=== PATIENT | female | born 1935 | race Caucasian/White ===

== ENCOUNTER → 2024-06-06 | Outpatient (CLI) | payer MEDICARE, OTHER ==
[2024-06-06 14:49] LABS: BASO # 0.02 K/mm3 (0.02-0.10); EOS # 0.16 K/mm3 (0.04-0.40); EOS % 1.5 % (1.0-5.0); HEMATOCRIT 33.4 % (37.0-47.0); HEMOGLOBIN 9.9 g/dL (12.5-16.0); LYMPH# 2.26 K/mm3 (1.50-4.00); MEAN CELL VOLUME 87 fl (78-100); MEAN CORPUSCULAR HEMOGLOBIN 26 pg (27-31); MEAN CORPUSCULAR HGB CONC 30 g/dL (33-37); MEAN PLATELET VOLUME 8.7 fl (7.4-10.4); MONO # 0.72 K/mm3 (0.20-0.80); NEU # 7.69 K/mm3 (1.40-6.50); PLATELET COUNT 336 K/mm3 (130-400); RED BLOOD COUNT 3.83 M/mm3 (4.10-5.30); RED CELL DISTRIBUTION WIDTH 15.2 % (11.5-14.5)
[2024-06-06 14:57] LABS: ALBUMIN 3.3 g/dL (3.4-4.8)
[2024-06-06 14:59] LABS: CALCIUM 8.8 mg/dL (8.3-10.5)
[2024-06-06 15:00] LABS: TOTAL PROTEIN 9.1 g/dL (6.2-8.1)
[2024-06-06 15:15] LABS: TOTAL BILIRUBIN 0.2 mg/dL (0.2-1.2)
== END ==
LOC: LAB 14:19
PROVIDERS: Nurse Practitioner
DX: R50.9 Fever, unspecified (principal)

== ENCOUNTER 2024-07-03 12:23 | Inpatient (IN) | payer MEDICARE, OTHER ==
[~2024-07-03] VITALS: Ht 157.5 cm; Wt 101.1 kg
[~2024-07-03 12:23] MED LIST: APRESOLINE 25MG25 MG PO; ASPERCREME; ASPIRIN E.C. 8181 MG PO; BISOPROLOL FUMA10 M1 PO; CLOPIDOGREL PO; DOXYCYCLINE HY100 M5 PO; GABAPENTIN100 MG PO; HYDROXYZINE PO; LASIX40 M1 PO; LIPITOR 80MG80 MG PO; NYSTATIN15 G1 TOP; OMEPRAZOLE40 MG PO; POTASSIUM CHLO10 ME8 PO; PRESERVISION PO; QUALITY CHOICE325 MG PO; ROPINIROLE PO; SEROQUEL 2525 MG/TAB PO; ZAROXOLYN PO
[2024-07-03] MEDS ORDERED: oxyCODONE 5 MG TAB PO PRN (12:45)
[2024-07-03] MEDS ORDERED: Polyethylene Glycol 3350 Powder 17 GM PACKET PO PRN (12:45)
[2024-07-03] MEDS ORDERED: Naloxone 0.4 MG/ML VIAL IV PRN (12:45)
[2024-07-03] MEDS ORDERED: Acetaminophen 325 MG TAB PO PRN (12:45)
[2024-07-03] MEDS ORDERED: PROAIR DIGIHAL90 MCG IH (13:57)
[2024-07-03] MEDS ORDERED: ASPERCREME85 GM TP (13:58)
[2024-07-03] MEDS ORDERED: HYDROCORT 2.5%-30 GM TP (13:59)
[2024-07-03] MEDS ORDERED: ATARAX 10MG10 MG/TAB PO (14:00)
[2024-07-03] MEDS ORDERED: MELATONIN5 M3 PO (14:01)
[2024-07-03] MEDS ORDERED: IMODIUM 2MG CAPS2 MG PO (14:01)
[2024-07-03] MEDS ORDERED: TYLENOL 325MG325 MG (14:03)
[2024-07-03] MEDS ORDERED: TRAMADOL 50 MG TAB PO (14:05)
[2024-07-03] MEDS ORDERED: Albuterol 90 MCG/PUFF MDI IH PRN (15:30)
[2024-07-03] MEDS ORDERED: NS 1,000 ML IV SCH (15:30)
[2024-07-03 16:13] VITALS: BP 113/56
[2024-07-03] MEDS ORDERED: Ferrous Sulfate 325 MG TAB PO SCH (17:00)
[2024-07-03] MEDS ORDERED: Melatonin 3 MG TAB PO SCH (20:00)
[2024-07-03 20:03] VITALS: BP 146/62
[2024-07-03] MEDS ORDERED: hydrOXYzine HCl 25 MG TAB PO SCH (21:00)
[2024-07-03] MEDS ORDERED: QUEtiapine 25 MG TAB PO SCH (21:00)
[2024-07-03] MEDS ORDERED: Furosemide 40 MG/4 ML VIAL IV SCH (21:00)
[2024-07-03] MEDS ORDERED: Gabapentin 100 MG CAP PO SCH (21:00)
[2024-07-03] MEDS ORDERED: hydrALAZINE 25 MG TAB PO SCH (21:00)
[2024-07-03] MEDS ORDERED: LORazepam 2 MG/ML VIAL IM PRN (22:15)
[2024-07-04] VITALS (7 sets, daily range): BP systolic 106–156; BP diastolic 62–90
[2024-07-04] MEDS ORDERED: cefTRIAXone 1 G in Water For Injection,Sterile 10 ML IV SCH (07:00)
[2024-07-04] MEDS ORDERED: Ferrous Sulfate 325 MG TAB PO SCH (08:00)
[2024-07-04 08:25] LABS: BASO # 0.03 K/mm3 (0.02-0.10); EOS # 0.04 K/mm3 (0.04-0.40); EOS % 0.3 % (1.0-5.0); HEMATOCRIT 32.8 % (37.0-47.0); HEMOGLOBIN 9.9 g/dL (12.5-16.0); LYMPH# 1.81 K/mm3 (1.50-4.00); MEAN CELL VOLUME 87 fl (78-100); MEAN CORPUSCULAR HEMOGLOBIN 26 pg (27-31); MEAN CORPUSCULAR HGB CONC 30 g/dL (33-37); MEAN PLATELET VOLUME 8.3 fl (7.4-10.4); MONO # 0.93 K/mm3 (0.20-0.80); NEU # 9.31 K/mm3 (1.40-6.50); PLATELET COUNT 314 K/mm3 (130-400); RED BLOOD COUNT 3.77 M/mm3 (4.10-5.30); RED CELL DISTRIBUTION WIDTH 15.8 % (11.5-14.5); WHITE BLOOD COUNT 12.2 K/mm3 (4.8-10.8)
[2024-07-04 08:28] LABS: ALBUMIN 2.7 g/dL (3.4-4.8)
[2024-07-04 08:29] LABS: CALCIUM 8.7 mg/dL (8.3-10.5)
[2024-07-04 08:30] LABS: TOTAL PROTEIN 7.1 g/dL (6.2-8.1)
[2024-07-04 08:32] LABS: TOTAL BILIRUBIN 0.3 mg/dL (0.2-1.2)
[2024-07-04] MEDS ORDERED: Sulfamethoxazole/Trimethoprim 800-160 MG TAB PO SCH (09:00)
[2024-07-04] MEDS ORDERED: Atorvastatin 80 MG TAB PO SCH (09:00)
[2024-07-04] MEDS ORDERED: metOLazone 2.5 MG TABLET PO SCH (09:00)
[2024-07-04] MEDS ORDERED: Clopidogrel 75 MG TAB PO SCH (09:00)
[2024-07-04] MEDS ORDERED: Bisoprolol 5 MG TAB PO SCH (09:00)
[2024-07-04] MEDS ORDERED: Furosemide 40 MG TAB PO SCH (09:15)
[2024-07-04] MEDS ORDERED: Miconazole 2% Topical Powder BOTTLE TP PRN (10:30)
[2024-07-05 04:09] VITALS: BP 114/69
[2024-07-05 05:42] LABS: BASO # 0.02 K/mm3 (0.02-0.10); HEMATOCRIT 28.9 % (37.0-47.0); HEMOGLOBIN 8.8 g/dL (12.5-16.0); LYMPH# 1.76 K/mm3 (1.50-4.00); MEAN CELL VOLUME 87 fl (78-100); MEAN CORPUSCULAR HEMOGLOBIN 26 pg (27-31); MEAN CORPUSCULAR HGB CONC 30 g/dL (33-37); MEAN PLATELET VOLUME 8.5 fl (7.4-10.4); MONO # 0.73 K/mm3 (0.20-0.80); NEU # 7.85 K/mm3 (1.40-6.50); PLATELET COUNT 315 K/mm3 (130-400); RED BLOOD COUNT 3.33 M/mm3 (4.10-5.30); RED CELL DISTRIBUTION WIDTH 15.8 % (11.5-14.5); WHITE BLOOD COUNT 10.5 K/mm3 (4.8-10.8)
[2024-07-05 05:51] LABS: CALCIUM 8.2 mg/dL (8.3-10.5)
[2024-07-05 07:37] VITALS: BP 135/71
[2024-07-05] MEDS ORDERED: Furosemide 40 MG TAB PO SCH (09:00)
[2024-07-05 13:15] VITALS: BP 108/64
[2024-07-05] MEDS ORDERED: BACTRIM DS TAB1 EACH PO (13:17)
[2024-07-05] MEDS ORDERED: CEFDINIR300 MG PO (13:19)
[2024-07-05 13:42] VITALS: BP 108/64
[2024-07-05] MEDS ORDERED: hydrOXYzine HCl 10 MG TAB PO SCH (21:00)
== END 2024-07-05 14:45 | disposition home or self-care (01) | DRG 872 ==
LOC: MED/SURG 12:23
PROVIDERS: Family Medicine; ADMIT Family Medicine
DX: A41.9 Sepsis, unspecified organism (principal); L03.116 Cellulitis of left lower limb; L03.115 Cellulitis of right lower limb; N39.0 Urinary tract infection, site not specified; S31.103A Unspecified open wound of abdominal wall, right lower quadrant without penetration into peritoneal cavity, initial encounter; I48.0 Paroxysmal atrial fibrillation; I25.2 Old myocardial infarction; J44.9 Chronic obstructive pulmonary disease, unspecified; Z66 Do not resuscitate; I10 Essential (primary) hypertension; I25.10 Atherosclerotic heart disease of native coronary artery without angina pectoris; K21.9 Gastro-esophageal reflux disease without esophagitis; F41.9 Anxiety disorder, unspecified; F32.A Depression, unspecified; E78.5 Hyperlipidemia, unspecified; Z79.01 Long term (current) use of anticoagulants; Z79.82 Long term (current) use of aspirin; Z79.899 Other long term (current) drug therapy; Z86.73 Personal history of transient ischemic attack (TIA), and cerebral infarction without residual deficits
CPT/HCPCS: A6021; A6240; A9270; J0696; J1940; J7030; Q0177

== ENCOUNTER 2024-08-14 02:16 | Emergency (ER) | payer MEDICARE, OTHER ==
[~2024-08-14] VITALS: Ht 167.6 cm; Wt 110.9 kg
[~2024-08-14 02:16] MED LIST changes: +ASPERCREME85 GM TP; +ATARAX 10MG10 MG/TAB PO; +BACTRIM DS TAB1 EACH PO; +CEFDINIR300 MG PO; +HYDROCORT 2.5%-30 GM TP; +IMODIUM 2MG CAPS2 MG PO; +MELATONIN5 M3 PO; +PROAIR DIGIHAL90 MCG IH; +TRAMADOL 50 MG TAB PO; +TYLENOL 325MG325 MG
[2024-08-14] MEDS ORDERED: Tdap Vaccine 0.5 ML SYRINGE IM ONE (03:15)
[2024-08-14 06:48] VITALS: BP 145/75
== END 2024-08-14 06:48 | disposition home or self-care (01) ==
LOC: ED 02:16
DX: S01.111A Laceration without foreign body of right eyelid and periocular area, initial encounter (principal); M25.562 Pain in left knee; F03.90 Unspecified dementia, unspecified severity, without behavioral disturbance, psychotic disturbance, mood disturbance, and anxiety; Z79.02 Long term (current) use of antithrombotics/antiplatelets; W18.39XA Other fall on same level, initial encounter; W22.8XXA Striking against or struck by other objects, initial encounter; Y93.01 Activity, walking, marching and hiking; Y92.099 Unspecified place in other non-institutional residence as the place of occurrence of the external cause
CPT/HCPCS: 90715

== ENCOUNTER 2024-09-22 04:04 | Emergency (ER) | payer MEDICARE, OTHER ==
[~2024-09-22] VITALS: Wt 110.9 kg
[2024-09-22] MEDS ORDERED: KAOPECTATE240 M1 PO (05:04)
[2024-09-22] MEDS ORDERED: SENNA8.6 M1 PO (05:07)
[2024-09-22] MEDS ORDERED: TRELEGY ELLIPT1 EACH IH (05:09)
[2024-09-22] MEDS ORDERED: MELATONIN5 M6 PO (05:10)
[2024-09-22] MEDS ORDERED: NS 1,000 ML IV SCH (05:15)
[2024-09-22 05:34] LABS: ALBUMIN 3.5 g/dL (3.4-4.8); CALCIUM 9.3 mg/dL (8.3-10.5); TOTAL BILIRUBIN 0.3 mg/dL (0.2-1.2); TOTAL PROTEIN 9.8 g/dL (6.2-8.1)
[2024-09-22 05:37] LABS: HEMATOCRIT 36.2 % (37.0-47.0); HEMOGLOBIN 11.2 g/dL (12.5-16.0); MEAN CELL VOLUME 94 fl (78-100); MEAN CORPUSCULAR HEMOGLOBIN 29 pg (27-31); MEAN CORPUSCULAR HGB CONC 31 g/dL (33-37); MEAN PLATELET VOLUME 9.2 fl (7.4-10.4); PLATELET COUNT 296 K/mm3 (130-400); RED BLOOD COUNT 3.85 M/mm3 (4.10-5.30); RED CELL DISTRIBUTION WIDTH 16.3 % (11.5-14.5); WHITE BLOOD COUNT 21.4 K/mm3 (4.8-10.8)
[2024-09-22 05:38] LABS: BAND 10 % (0-10); LYMPHOCYTE 10 % (20-51); MONOCYTE 7 % (3-10); NEUTROPHILS 73 % (42-75)
[2024-09-22 05:39] LABS: URINE APPEARANCE SLIGHTLY CLOUDY (CLEAR); URINE BILIRUBIN NEGATIVE (NEGATIVE); URINE BLOOD NEGATIVE (NEGATIVE); URINE COLOR YELLOW (YELLOW); URINE GLUCOSE NEGATIVE (NEGATIVE); URINE KETONE NEGATIVE (NEGATIVE); URINE LEUKOCYTE ESTERASE TRACE (NEGATIVE); URINE NITRATE NEGATIVE (NEGATIVE); URINE PROTEIN(semi-quant) 2+ (NEGATIVE)
[2024-09-22] MEDS ORDERED: cefTRIAXone 1 G in Water For Injection,Sterile 10 ML IV ONE (05:45)
[2024-09-22] MEDS ORDERED: LORazepam 2 MG/ML VIAL IV ONE (08:00)
[2024-09-22 09:11] VITALS: BP 93/68
== END 2024-09-22 08:40 | disposition short-term general hospital (02) ==
LOC: ED 04:04
PROVIDERS: Family Medicine
DX: A41.9 Sepsis, unspecified organism (principal); N39.0 Urinary tract infection, site not specified; N17.9 Acute kidney failure, unspecified; L03.116 Cellulitis of left lower limb; L03.115 Cellulitis of right lower limb; Z86.73 Personal history of transient ischemic attack (TIA), and cerebral infarction without residual deficits; Z79.82 Long term (current) use of aspirin; Z79.02 Long term (current) use of antithrombotics/antiplatelets
CPT/HCPCS: J0696; J2060; J3370; J7030; J7050